=== PATIENT | female | born 1990 | race African-American/Black ===

== ENCOUNTER → 2020-06-08 | Outpatient (CLI) | payer MEDICAID ==
[~2020-06-08] MED LIST: ACETAMINOPHEN 325 MG TABLET PO PRN; CEFAZOLIN 2 GM/D5W RTU 2 GM/50 ML RTUPB IV PRN; IBUPROFEN 800 MG in NORMAL SALINE 250 ML IV PRN; LACTATED RINGERS 1000 ML IV PRN; LIDOCAINE 0.5% INJ-PF (5 MG/ML) 50 ML SDV SUBCUT PRN; PREGABALIN 50 MG CAPSULE PO PRN
[2020-06-08 11:50] VITALS: BP 110/67
[2020-06-08 12:52] LABS: HEMATOCRIT 38.8 % (36.0-47.0); HEMOGLOBIN 13.7 g/dL (12.0-15.5); MEAN CORPUSCULAR HEMOGLOBIN 33.5 pg (27.0-33.4); MEAN CORPUSCULAR HGB CONC 35.4 g/dL (32.0-36.0); MEAN CORPUSCULAR VOLUME 95 fl (80-97); PLATELET COUNT 287 10^3/uL (150-450); RED CELL DISTRIBUTION WIDTH 12.8 % (11.5-14.0); WHITE BLOOD COUNT 8.9 10^3/uL (4.0-10.5)
[2020-06-08 13:18] LABS: ANION GAP 12 (5-19); BLOOD UREA NITROGEN 10 mg/dL (7-20); CALCIUM 9.3 mg/dL (8.4-10.2); CARBON DIOXIDE 21 mmol/L (22-30); CHLORIDE 104 mmol/L (98-107); GLUCOSE 72 mg/dL (75-110); POTASSIUM 3.8 mmol/L (3.6-5.0)
--- NOTE | 2020-06-08 13:23 | RADIOLOGY REPORT (SQ) ---
EXAM DESCRIPTION: CHEST PA/LATERAL IMAGES COMPLETED DATE/TIME: 06/08/2020 12:33 pm REASON FOR STUDY: PRE-OP COMPARISON: None. EXAM PARAMETERS: NUMBER OF VIEWS: Two views. TECHNIQUE: PA and lateral views of the chest were obtained. RADIATION DOSE: NA. LIMITATIONS: None. FINDINGS: LUNGS AND PLEURA: No consolidation, pleural effusion or pneumothorax. MEDIASTINUM AND HILAR STRUCTURES: No mediastinal or hilar contour abnormality. HEART AND VASCULAR STRUCTURES: The cardiac silhouette and pulmonary vasculature are within normal montalvo its. BONES: No acute findings. HARDWARE: None in the chest. OTHER: No other finding. IMPRESSION: No acute cardiopulmonary process. TECHNICAL DOCUMENTATION: JOB ID: [id number] 2010 [employer]- All Rights Reserved Reading location - IP/workstation name: [email or web address]
== END ==
LOC: OD 11:07 → EDSTATUS 06-12 07:30
PROVIDERS: ATTEND Surgery
DX: Z01.818 Encounter for other preprocedural examination (principal); K43.2 Incisional hernia without obstruction or gangrene; Z03.818 Encounter for observation for suspected exposure to other biological agents ruled out
CPT/HCPCS: 36415; 85027; 87635; 80048; 71046; C9803; J1741; J7050

== ENCOUNTER 2020-09-18 05:35 | Day surgery (SDC) | payer MEDICAID ==
[~2020-09-18 05:35] MED LIST changes: +ACETAMINOPHEN 1,000 MG/100 ML RTUPB IV ONE; +ACETAMINOPHEN 1,000 MG/100 ML RTUPB IV PRN; -ACETAMINOPHEN 325 MG TABLET PO PRN; +CEFAZOLIN 2 GM/D5W RTU 2 GM/50 ML RTUPB IV ONE; -PREGABALIN 50 MG CAPSULE PO PRN
[2020-09-18] MEDS ORDERED: PROPOFOL INJ 200 MG/20 ML VIAL IV ONE (06:55)
[2020-09-18] MEDS ORDERED: FENTANYL CITRATE INJ/PF 100 MCG/2 ML AMPUL ONE ×2 (06:55→09:23)
[2020-09-18] MEDS ORDERED: MIDAZOLAM 2 MG/2 ML INJ ONE (06:55)
[2020-09-18] MEDS ORDERED: HYDROMORPHONE HCL INJ/PF 2 MG/ML AMPULE ONE (06:55)
[2020-09-18] MEDS ORDERED: LIDOCAINE 2% INJ (20 MG/ML) 20 ML MDV ONE (06:56)
[2020-09-18] MEDS ORDERED: BUPIVACAINE HCL 0.25 % INJ/PF (2.5 MG/1 ML) 30 ML VIAL ONE (07:06)
[2020-09-18] MEDS ORDERED: MORPHINE SULFATE 10 MG/ML INJ IV PRN (07:47)
[2020-09-18] MEDS ORDERED: ONDANSETRON HCL INJ/PF 4 MG/2 ML SDV IV PRN (07:47)
[2020-09-18] MEDS ORDERED: PROMETHAZINE HCL INJ 25 MG/1 ML VIAL IV PRN (07:47)
[2020-09-18] MEDS ORDERED: DIPHENHYDRAMINE HCL 50 MG/ML VIAL IV PRN (07:47)
[2020-09-18] MEDS ORDERED: FENTANYL CITRATE INJ/PF 100 MCG/2 ML AMPUL IV PRN ×3 (07:47)
[2020-09-18] MEDS ORDERED: MEPERIDINE HCL/PF INJ 25 MG/1 ML DISP.SYRIN IV PRN (07:47)
[2020-09-18] MEDS ORDERED: HYDROCODONE/ACETAMINOPHEN 10-325 MG TABLET PO PRN (09:12)
--- NOTE | 2020-09-18 09:12 | Discharge Summary ---
Discharge Summary (SDC) - Discharge Final Diagnosis: indirect right inguinal hernia Date of Surgery: 09/18/20 Discharge Date: 09/18/20 Condition: Stable Treatment or Instructions: Discharge home. Diet as tolerated. Activity: No lifting greater than 10 pounds x 4 weeks. Follow-up with [facility] in 7 to 10 days. Okay to shower starting on Monday. No tub baths or swimming pools x2 weeks. Prescriptions: Hydrocodone/Acetaminophen [[place]av[place] 10-325 mg Tablet] 1 tab PO Q6HP PRN #14 tablet PRN Reason: For Pain Discharge Diet: As Tolerated Respiratory Treatments at Home: Deep Breathing/Coughing, Incentive Spirometer Discharge Activity: Balance Activity w/Rest, No Lifting Over 10 Pounds, No Lifting/Push/Pulling Home Care Assistance: None Needed Report the Following to Your Physician Immediately: Shortness of Breath, Nausea, Vomiting, Increase in Pain, Fever over 101 Degrees, Unusual Bleeding, Redness
--- NOTE | 2020-09-18 09:22 | Operative Report ---
Nonrecallable Operative Report DATE OF SURGERY: 09/18/20 PREOPERATIVE DIAGNOSIS: Hernia of the right groin, in the area of a previous C- section incision. POSTOPERATIVE DIAGNOSIS: Indirect right inguinal hernia OPERATION: Robot-assisted laparoscopic right inguinal hernia repair with mesh. SURGEON: ANDREW ROSE ANESTHESIA: GA TISSUE REMOVED OR ALTERED: None COMPLICATIONS: None apparent ESTIMATED BLOOD LOSS: Minimal PROCEDURE: Drains/implants: Right sided large 3D max inguinal hernia mesh. Procedure in detail: After informed consent was obtained, the patient was brought to the operating room and laid in the supine position. The area of the abdomen was prepped and draped in a normal sterile fashion. A supraumbilical incision was created with a 15 blade scalpel. Dissection was carried through the subcutaneous tissues using sharp and blunt dissection. The linea alba fascia was incised sharply, the abdomen was entered sharply. The balloon trocar was inserted, and pneumoperitoneum was achieved. Two 8 mm robotic trochars were placed in the right and left lateral abdominal wall under direct laparoscopic visualization. The robot was then brought over the patient and docked appropriately. I then assumed my position at the surgeon's console. Attention was turned to the left groin. Inspection was undertaken. There was an obvious indirect right inguinal hernia defect at the round ligament. Secondary to this, a mesh was felt to be necessary. A preperitoneal dissection was undertaken, approximately 3 cm superior to the defect. The preperitoneal dissection was performed using sharp dissection, blunt dissection, and electrocautery. The hernia sac was reduced, and the round ligament was pulled into the abdominal cavity. The hernia sac was then everted. A 3 DMax inguinal hernia mesh was then placed in the preperitoneal space. It was sutured medially and superiorly using 2-0 Vicryl suture. Next, the peritoneum was closed over top of the mesh using 2-0 absorbable VLock suture. The repair was inspected. It was found to be in good order. The robot was then undocked, and I scrubbed back into the case. The trochars were removed, pneumoperitoneum was relieved. The supraumbilical fascia was closed using 0 Vicryl suture in [id number] fashion. The overlying skin was closed using 4-0 Vicryl Rapide suture in subcuticular fashion. Dressings were placed, and the procedure was concluded. All sponge, instrument, needle counts were correct x2. Condition: Stable.
[2020-09-18] MEDS ORDERED: HYDROCODONE/ACETAMINOPHEN 10-325 MG TABLET ONE (09:46)
[2020-09-18] MEDS ORDERED: NEOSTIGMINE METHYLSULFATE 10 MG/10 ML VIAL ONE (10:35)
[2020-09-18] MEDS ORDERED: ROCURONIUM BROMIDE INJ 50 MG/5 ML VIAL IV ONE (10:35)
[2020-09-18] MEDS ORDERED: ONDANSETRON HCL INJ/PF 4 MG/2 ML SDV ONE (10:35)
[2020-09-18] MEDS ORDERED: GLYCOPYRROLATE 1 MG/5 ML VIAL ONE (10:35)
[2020-09-18] MEDS ORDERED: DEXAMETHASONE SOD PHOSPHATE INJ 4 MG/1 ML VIAL ONE (10:35)
[2020-09-18 12:41] VITALS: BP 114/71
== END 2020-09-18 10:45 | disposition home or self-care (01) ==
LOC: OROUT 05:35
PROVIDERS: ATTEND Surgery
DX: K40.90 Unilateral inguinal hernia, without obstruction or gangrene, not specified as recurrent (principal); Z01.812 Encounter for preprocedural laboratory examination; Z20.822 Contact with and (suspected) exposure to COVID-19; Z98.890 Other specified postprocedural states
CPT/HCPCS: 87635; 81025; 00840; 49650; C1781; J2250; J3490 ×4; J1100; J3010; J2710; J2405; J7050; J2704; J0690; J0131; J1741; C9803; 840; J1170